=== PATIENT | male | born 1965 | race Hispanic/Latino ===

== ENCOUNTER 2018-08-14 17:40 | Emergency (ER) | payer OTHER ==
--- NOTE | 2018-08-14 17:57 | ED PDOC ---
Lower Extremity Pain/Injury Time Seen by Provider: 08/14/18 17:49 Chief Complaint (Nursing): Lower Extremity Problem/Injury Chief Complaint (Provider): Right Knee Pain History Per: Patient History/Exam Limitations: no limitations Onset/Duration Of Symptoms: Days (x2) Current Symptoms Are (Timing): Still Present Additional Complaint(s): 53 year old male presents to the ED for evaluation of worsening right knee pain associated with redness and swelling for the past two days. He notes he was unable to get an appointment with his PMD, prompting his visit here today bec gonzáleze the pain is now interfering with his sleep, starting in his knee and shooting down to his foot. 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 His last dosage was of medication was Soma 350mg fifteen minutes [employer]. Denies other complaints, fever, trauma, falls, and prior right knee surgery/injury. PMD: Ayesha Noble Pain management: Caroline Past Medical History Reviewed: Historical Data, Nursing Documentation, Vital Signs Vital Signs: Last Vital Signs Temp 97.9 F 08/14/18 17:44 Pulse 98 H 08/14/18 17:44 Resp 16 08/14/18 17:44 BP 146/80 08/14/18 17:44 Pulse Ox 98 08/14/18 17:44 - Medical History PMH: Anxiety, Asthma, Back Problems, HTN, Chronic Pain Other PMH: erectile dysfunction, eczema, ADHD - Surgical History Surgical History: Appendectomy, Back Surgery, Tonsillectomy Other surgeries: right shoulder replacement, orthoscopic left knee procedures - Family History Family History: States: Unknown Family Hx - Social History Current smoker - smoking cessation education provided: No Alcohol: None - Home Medications Home Medications: Ambulatory Orders Medication Instructions Recorded Cephalexin [cephalexin] 500 mg PO TID #21 cap 08/14/18 Sulfamethoxazole/Trimethoprim 1 tab PO BID #14 tab 08/14/18 [Bactrim DS 800 mg-160 mg] - Allergies Allergies/Adverse Reactions: Allergies Allergy/AdvReac Type Severity Reaction Status Date / Time morphine Allergy VOMITING Verified 08/14/18 17:55 Review of Systems ROS Statement: Except As Marked, All Systems Reviewed And Found Negative Constitutional: Negative for: Fever Musculoskeletal: Positive for: Other (worsening right knee pain, swelling, and redness) Physical Exam - Reviewed Nursing Documentation Reviewed: Yes Vital Signs Reviewed: Yes - Physical Exam Comments: GENERAL APPEARANCE: Patient is awake, alert, oriented x 3, in no acute distress. Resting comfortably. Ambulatory in ED with steady gait. SKIN: Warm, dry; (-) cyanosis. NECK: Supple, FROM ENT: Mucus membranes moist. Airway patent, (-) stridor. RESPIRATORY: lungs clear to auscultation bilaterally (-) rales (-) rhonchi (-) wheezing CARDIAC: RRR RIGHT LOWER EXTREMITY: Knee: (+) moderate effusion with overlying warmth and erythema extending to ventral mid gil, (+) scabbed superficial abrasion to infrapatellar space, (+) full ROM with pain on flexion. (-) valgus or varus stre ss. (-) anterior and posterior drawer sign. Remainder of LE nontender with full ROM. (-) calf tenderness, (-) palpable cord. CARDIOVASCULAR: (+) distal pulse. NEUROLOGIC: (+) distal sensation. - Laboratory Results Result Diagrams: 08/14/18 19:00 08/14/18 19:00 - ECG O2 Sat by Pulse Oximetry: 98 (RA) Pulse Ox Interpretation: Normal Medical Decision Making Medical Decision Making: Initial Impression: acute knee pain and swelling, cellulitis of knee Time: 1799 Initial Plan: --CMP --CBC with differential --ESR --Right knee XR --Normal saline IV --Rocephin 1gm in NS IVPB --Toradol 30mg IVP --Blood culture x2 1930 Knee XR: (-) fracture (-) acute abnormality as read by Pacheco WALTERS Patient resting comfortably, with no additional complaints. 2029 Labs reviewed and grossly unremarkable. Area of erythema outlined with a skin marker by Pacheco WALTERS. Patient advised to return immediately if erythema extends beyond margins drawn in ED. 2104 On re-evaluation, patient reports improvement of symptoms. On exam, patient remains AAOx3, in no acute distress. Vitals stable. Lab/Diagnostic results d/w the patient in great detail. Diagnosis of acute knee pain, cellulitis of knee d/w the patient. Return parameters discussed. Based on history, exam and diagnostic results, plan will be for outpatient follow up with ortho/PMD. Patient instructed to follow-up with pmd / referral provided / the clinic in 1- 2 days without fail. Advised to take medication as prescribed. Return to the emergency room at any time for any new or worsening symptoms. Patient states he fully agrees with and understands discharge instructions. States that he agrees with the plan and disposition. Verbalized and repeated discharge instructions and plan. I have given the patient opportunity to ask any additional questions. Scribe Attestation: Documented by Ena Alarcon, acting as a scribe for Shanda Bergman PA-C. Provider Scribe Attestation: All medical record entries made by the Scribe were at my direction and personally dictated by me. I have reviewed the chart and agree that the record accurately reflects my personal performance of the history, physical exam, medical decision making, and the department course for this patient. I have also personally directed, reviewed, and agree with the discharge instructions and disposition. Disposition - Clinical Impression Clinical Impression: Acute knee pain, Cellulitis of knee - Patient ED Disposition Is Patient to be Admitted: No Counseled Patient/Family Regarding: Studies Performed, Diagnosis, Need For Followup, Rx Given - Disposition Referrals: Ayesha Noble MD [Family Provider] - Los Sarabia MD [Medical Doctor] - Disposition: Routine/Home Disposition Time: 21:05 Condition: STABLE Additional Instructions: PLEASE RETURN TO ED IMMEDIATELY IF SYMPTOMS WORSEN, YOU DEVELOP FEVER, REDNESS EXCEEDS MARGINS, OR RANGE OF MOTION DECREASES. CONTINUE YOUR CURRENT PAIN MEDICATION REGIMEN. The emergency medical care you received today was directed at your acute symptoms. If you were prescribed any medication, please fill it and take as directed. It may take several days for your symptoms to resolve. Return to the Emergency Department if your symptoms worsen, do not improve, or if you have any other problems. Please contact your doctor in 2 days for re-evaluation and follow up / or call one of the physicians/clinics you have been referred to that are listed on the Patient Visit Information form that is included in your discharge packet. Bring any paperwork you were given at discharge with you along with any medications you are taking to your follow up visit. Our treatment cannot replace ongoing medical care by a primary care provider (PCP) outside of the emergency department. Prescriptions: Cephalexin [cephalexin] 500 mg PO TID #21 cap Sulfamethoxazole/Trimethoprim [Bactrim DS 800 mg-160 mg] 1 tab PO BID #14 tab Instructions: Cellulitis and Erysipelas (Skin Infections), Knee Pain (DC) Forms: [employer] (Vietnamese) Print Language: OCCITAN - POA Present On Arrival: None Results - Lab Results Lab Results: 08/14/18 08/14/18 19:00 19:00 WBC 8.2 RBC 4.43 Hgb 14.3 Hct 42.3 MCV 95.4 H MCH 32.2 H MCHC 33.8 RDW 13.6 Plt Count 233 MPV 7.5 Neut % (Auto) 76.1 H Lymph % (Auto) 14.5 L Tripp % (Auto) 6.5 Eos % (Auto) 2.1 Baso % (Auto) 0.8 Neut # (Auto) 6.3 Lymph # (Auto) 1.2 Tripp # (Auto) 0.5 Eos # (Auto) 0.2 Baso # (Auto) 0.1 ESR 8 Sodium 133 Potassium 4.2 Chloride 95 L Carbon Dioxide 29 Anion Gap 13 BUN 20 Creatinine 0.9 Est GFR ( Amer) > 60 Est GFR (Non-Af Amer) > 60 Random Glucose 92 Calcium 8.9 Total Bilirubin 0.2 AST 39 ALT 49 Alkaline Phosphatase 72 Total Protein 7.0 Albumin 4.2 Globulin 2.7 Albumin/Globulin Ratio 1.6
[2018-08-14] MEDS ORDERED: Sodium Chloride 0.9% 1,000 ML IV ONE (18:02)
[2018-08-14] MEDS ORDERED: cefTRIAXone (Rocephin) 1 gm Inj ONE (18:14)
[2018-08-14 19:14] LABS: BASO # 0.1 K/uL (0.0-0.2); BASO % 0.8 % (0.0-2.0); EOS # 0.2 K/uL (0.0-0.7); EOS % 2.1 % (0.0-4.0); HEMOGLOBIN 14.3 g/dL (12.0-18.0); LYMPH # 1.2 K/uL (1.0-4.3); LYMPH % 14.5 % (20.0-40.0); MEAN CELL VOLUME 95.4 fl (80.0-94.0); MEAN CORPUSCULAR HEMOGLOBIN 32.2 pg (27.0-31.0); MEAN CORPUSCULAR HGB CONC 33.8 g/dL (33.0-37.0); MEAN PLATELET VOLUME 7.5 fl (7.2-11.7); MONO # 0.5 K/uL (0.0-0.8); MONO % 6.5 % (0.0-10.0); NEUT # 6.3 K/uL (1.8-7.0); NEUT % 76.1 % (50.0-75.0); NRBC % 0.1 % (0.0-0.0); RBC 4.43 Mil/uL (4.40-5.90); RED CELL DISTRIBUTION WIDTH 13.6 % (11.5-14.5); WHITE BLOOD COUNT 8.2 K/uL (4.8-10.8)
[2018-08-14 19:20] LABS: ALB/GLOB RATIO 1.6 (1.0-2.1); ALBUMIN 4.2 g/dL (3.5-5.0); ALT/SGPT 49 U/L (21-72); AST/SGOT 39 U/L (17-59); BLOOD UREA NITROGEN 20 mg/dl (9-20); CALCIUM 8.9 mg/dL (8.4-10.2); GFR NON-AFRICAN AMERICAN > 60
[2018-08-14 21:20] VITALS: BP 154/93; PULSE 76; RESP 18; TEMP 98.1
--- NOTE | 2018-08-15 09:51 | RAD ---
Date of service: 08/14/2018 PROCEDURE: Right Knee Radiographs. HISTORY: joint pain, cellulitis COMPARISON: None. FINDINGS: BONES: Bone alignment and mineralization are normal. There is no acute displaced fracture or bone destruction. JOINTS: Normal. No osteoarthritis. JOINT EFFUSION: Small suprapatellar joint effusion. OTHER FINDINGS: Moderate prepatellar soft tissue swelling. IMPRESSION: No acute fracture or dislocation. Small suprapatellar joint effusion and moderate prepatellar soft tissue swelling.
[2018-08-17 17:23] VITALS: O2SAT 98
== END 2018-08-14 21:26 | disposition home or self-care (01) ==
LOC: H.ER 17:40 → SUPCPDRO 17:40 → H.ER 21:26
DX: L03.115 Cellulitis of right lower limb (principal)
CPT/HCPCS: 73562; 80053; 85025; 85651; 87040; 96365; 96375; 99283; J0696; J1885; J7040